=== PATIENT | female | born 1990 | race Two or more races ===

== ENCOUNTER 2020-01-24 18:40 | Emergency (ER) | payer MEDICAID ==
[~2020-01-24] VITALS: Ht 154.9 cm; Wt 66.7 kg
[2020-01-24 18:51] VITALS: Ht 154.9 cm; Wt 66.7 kg
[2020-01-24 19:48] VITALS: BP 122/71
== END 2020-01-24 19:48 | disposition home or self-care (01) ==
LOC: ED 18:40
DX: N39.0 Urinary tract infection, site not specified (principal)